=== PATIENT | female | born 1990 | race Caucasian/White ===

== ENCOUNTER → 2021-06-05 | Outpatient (CLI) | payer BC, OTHER ==
--- NOTE | 2021-06-05 15:06 | REP ---
INDICATION: PREG 32 WKS GROWTH COMPARISON: None. TECHNIQUE: Transabdominal obstetrical ultrasound with color Doppler evaluation. FINDINGS: Examination demonstrates a single live intrauterine in cephalic presentation. motion is identified by technologist. Placenta is noted posterior and grade 3 without evidence for placenta previa or abruption. Amniotic fluid volume is normal. Selected gestational age: 34 weeks 1 day with KAITLIN 07/16/2021. Gestational age by current measurements 35 weeks 4 days with KAITLIN 07/06/2021. FHR equals 160 beats per minute. BPD: 8.8 cm at 35 weeks 5 days HC: 31.8 cm at 35 weeks 5 days AC: 31.6 cm at 35 weeks 4 days FL: 7.0 cm at 36 weeks 0 days HL: 6.1 cm at 35 weeks 0 days HC/AC: 1.01 Estimated weight 2737 grams (85thpercentile). CLIFF: 9.3 cm Umbilical artery SD ratio: 2.39 IMPRESSION: Single live intrauterine in cephalic presentation demonstrating appropriate estimated weight and growth. Amniotic fluid volume is lower limits of normal. <Electronically signed by Ronny Meza > 06/05/21 [id number]
== END ==
LOC: M WHC 13:26
PROVIDERS: ATTEND Obstetrics & Gynecology
DX: Z36.2 Encounter for other antenatal screening follow-up (principal)

== ENCOUNTER → 2021-06-22 | Outpatient (REF) | payer OTHER ==
[~2021-06-22] MED LIST: ACET-683 PO; COLA100C5 PO; IBUP-1022 PO; OXYC1CAP PO; PRENTAB9 PO
== END ==
LOC: M SFHCWAGY 17:12
PROVIDERS: ATTEND Obstetrics & Gynecology
DX: O34.211 Maternal care for low transverse scar from previous cesarean delivery (principal)